=== PATIENT | female | born 2000 | race Two or more races ===

== ENCOUNTER 2024-11-19 01:53 | Emergency (ER) | payer BC, MEDICAID, SELFPAY ==
[2024-11-19 01:54] VITALS: BMI 29.0
--- NOTE | 2024-11-19 02:41 | PC.NURSE ---
pt informed me that she is leaving.
== END 2024-11-19 02:41 | disposition left against medical advice (07) ==
PROVIDERS: Emergency Provider Emergency Medicine
DX: Z53.21 Procedure and treatment not carried out due to patient leaving prior to being seen by health care provider (principal)

== ENCOUNTER 2025-04-05 17:44 | Emergency (ER) | payer BC, MEDICAID, SELFPAY ==
[2025-04-05 18:03] VITALS: BP 131/86; PULSE 109; RESP 17; TEMP 36.7; O2SAT 98; BMI 26.4
--- NOTE | 2025-04-05 18:43 | XR_ITS ---
Examination: Complete OB ultrasound, less than 14 weeks, transabdominal Date and time of exam: April 05, 2025 at 2004 hours INDICATIONS: Body aches pelvic pain 2 weeks Technique: Obstetrical ultrasound images less than 14 weeks performed via transabdominal imaging Findings: A normal shaped single intrauterine gestation is present in the uterus. CRL 4.95 cm corresponds to 11 weeks 5 days gestational age Cardiac motion 164 BPM 21 x 4 mm subchorionic hemorrhage Ultrasonographic survey of visible structures unremarkable. Amniotic fluid volume appears appropriate for this estimated gestational age. Right ovary 2.8 cm arterial flow 9 mm follicular cyst Left ovary obscured by bowel gas IMPRESSION: Viable intrauterine gestation 11 weeks 5 days Recommend short-term follow-up, given the subchorionic hemorrhage
--- NOTE | 2025-04-05 18:44 | EDRME_ITS ---
Rapid Medical Screening Exam [facility] Arrival date/time: 04/05/25 17:44 24F at approximately 12 weeks and with history of hypothyroidism presents to ED with 1 week of worsening low back pain, green vaginal discharge, N/V, and fevers/chills. Patient finished yeast infection treatment w/o relief. Patient denies ab/pelvic pain/cramping, dysuria, and vaginal bleeding. Chief Complaint: Nausea/Vomiting/Diarrhea Vital signs: Vital Signs Temperature 98.1 F 04/05/25 18:03 Pulse Rate 109 H 04/05/25 18:03 Respiratory Rate 17 04/05/25 18:03 Blood Pressure 131/86 H 04/05/25 18:03 Pulse Oximetry (%) 98 04/05/25 18:03 Oxygen Delivery Method Room Air 04/05/25 18:03
[2025-04-05 19:09] LABS: Lactate (Lactic Acid) 1.1 mMol/L (0.4-2.0)
[2025-04-05 19:10] LABS: Collection Type, Urine Clean Catch
[2025-04-05 19:11] LABS: Basophils # (Auto) 0.0 Thou/mm3 (0.0-0.2); Basophils % (Auto) 0 % (0-2.5); Eosinophils # (Auto) 0.1 Thou/mm3 (0.0-0.5); Eosinophils % (Auto) 1 % (0-10); Hematocrit 39.4 % (36.0-46.0); Hemoglobin 13.4 g/dL (12.0-16.0); Immature Granulocytes Auto 0.01 Thou/mm3 (0.00-0.00); Lymphocytes # (Auto) 1.0 Thou/mm3 (1.0-4.8); Lymphocytes % (Auto) 16 % (10-50); Mean Corpuscular HGB Conc 34.0 g/dl (31.0-37.0); Mean Corpuscular Hemoglobin 29.7 pg (25.0-35.0); Mean Corpuscular Volume 87 fL (80-100); Monocytes # (Auto) 0.3 Thou/mm3 (0.0-0.8); Monocytes % (Auto) 5 % (0-12); Neutrophils # (Auto) 5.2 Thou/mm3 (1.8-7.7); Neutrophils % (Auto) 78 % (37-80); Nucleated Red Blood Cell # 0.00 Thou/mm3 (0.00-0.00); Nucleated Red Blood Cell % 0 /100 WBC (0); Platelet Count 201 Thou/mm3 (140-440); RDW Standard Deviation 40.2 fL (36.4-46.3); Red Blood Count 4.51 Miln/mm3 (4.00-5.20); White Blood Count 6.7 Thou/mm3 (3.6-11.0)
[2025-04-05 19:16] LABS: Bacteria,Urine Rare; Bilirubin,Urine Negative (Negative); Blood,Urine Negative (Negative); Clarity,Urine Clear (Clear/Hazy); Color,Urine Colorless (Lt Yel-Yel); Glucose, Urine Negative (Negative); Ketones,Urine Negative (Negative); Leukocyte Esterase,Urine Negative (Negative); Nitrite,Urine Negative (Negative); PH,Urine 7.5 (5.0-7.0); Protein,Urine Negative (Neg - Trace); RBC,Urine 2 /hpf (0-3); Specific Gravity,Urine 1.008 (1.001-1.035); Squamous Epithelial Cell,Urine < 1 /hpf (0-5); Urobilinogen,Urine Negative mg/dL (0.0-1.0); WBC,Urine 1 /hpf (0-5)
[2025-04-05 19:38] LABS: Alanine Aminotransferase 14 U/L (10-49); Albumin, Serum 4.4 gm/dL (3.5-5.0); Albumin/Globulin Ratio 1.6 (1.2-2.2); Alkaline Phosphatase 68 U/L (46-116); Anion Gap 8 (7-16); Aspartate Amino Transferase 13 U/L (0-34); BUN/Creatinine Ratio 8 Ratio (12-20); Bilirubin,Total 0.5 mg/dL (0.3-1.2); Blood Urea Nitrogen < 5 mg/dL (9-23); Calcium 9.4 mg/dL (8.3-10.6); Calcium (Corrected) 9.4 mg/dL (8.5-10.1); Carbon Dioxide 25.1 mMol/L (20.0-31.0); Chloride 105 mMol/L (98-107); Creatinine (Component) 0.6 mg/dL (0.6-1.3); Estimated Creatinine Clearance 152.8 mL/min (>60); Globulin 2.7 gm/dL (2.3-3.5); Glucose 90 mg/dL (74-106); Osmolality,Calculated 272 (275-295); Potassium 3.5 mMol/L (3.4-5.1); Sodium 138 mMol/L (136-145); Total Protein 7.1 gm/dL (5.7-8.2); eGFR > 60 See Note
[2025-04-05 19:42] LABS: Procalcitonin 0.08 ng/ml (0.0-0.49)
--- NOTE | 2025-04-05 21:27 | PD.EDNV ---
Nausea/Vomit./Diarrhea-RME/HPI General Chief complaint: Nausea/Vomiting/Diarrhea Stated complaint: 11 weeks OB,, vaginal discharge, vomiting Time Seen by Provider: 04/05/25 19:39 Arrival date/time: 04/05/25 17:44 RME / HPI RME / HPI Narrative: 24F at approximately 12 weeks and with history of hypothyroidism presents to ED with 1 week of worsening low back pain, yellowish vaginal discharge, N/V, and fevers/chills. Patient finished yeast infection treatment w/o relief. Patient denies ab/pelvic pain/cramping, dysuria, and vaginal bleeding. Patient also complained of nausea this been ongoing since start of . No vomiting noted. Related Data Home Medications ?Medication ?Instructions ?Recorded ?Confirmed labetalol 100 mg tablet 100 mg PO BID 04/02/24 04/02/24 levothyroxine 25 mcg tablet 25 mcg PO QDAY 04/02/24 04/02/24 vit no.95-ferrous 1 tab PO QDAY 04/02/24 04/02/24 fumarate 28 mg-folic acid 800 mcg tablet () Previous Rx's ?Medication ?Instructions ?Recorded docusate sodium 100 mg capsule 100 mg PO BID #60 caps 04/02/24 (Colace) ibuprofen 800 mg tablet 800 mg PO Q6H PRN pain #120 tabs 04/02/24 lanolin 50 % topical ointment 1 applic topical TID PRN skin 04/02/24 irritation #15 tubes doxylamine 10 mg-pyridoxine (vit 1 tab PO BID PRN nausea and 04/05/25 B6) 10 mg tablet,delayed release vomiting #30 tabs (Diclegis) Allergies Allergy/AdvReac Type Severity Reaction Status Date / Time latex Allergy Mild Rash Verified 04/05/25 17:49 Review of Systems Review of Systems Narrative Review of Systems: Review of system reviewed and within normal limits except mentioned in HPI ED Exam Narrative Physical exam: VITAL SIGNS: Reviewed. GENERAL APPEARANCE: Alert and interactive, follows commands, no acute distress, HEAD AND FACE: Non-traumatic. ENT: PERRL, pink conjunctivitis, eyelid no trauma, Mucous membrane moist. NECK: Supple, nontender, no nuchal rigidity. CHEST: No tenderness, no crepitus, no paradoxical movement, no retractions. LUNGS: Clear, well ventilated, symmetric, no rales, no wheezing, no ronchi, no stridor, good breath sounds bilaterally. HEART: Regular rate, regular rhythm, no murmur, no gallops. ABDOMEN: Soft, positive bowel sounds, nondistended, no guarding, nontender, no rebound, no masses, RECTAL: Deferred. GENITAL: Deferred. NEUROLOGICAL: Gross motor function intact sensory function intact, Appropriate for age. MUSCULOSKELETAL: low back nontender, full range of motion. EXTREMITIES: Nontender, full range of motion. SKIN: Color pink, dry, no rash, no lacerations, no abrasions, no contusions. LYMPHATICS: Deferred. Course Quality Measures none Orders Category Date Time Status US OB <= 14 weeks fetus Stat Exams 04/05/25 18:43 Completed CBC Stat Lab 04/05/25 18:54 Completed CMP [Comprehensive Metabolic Panel] Stat Lab 04/05/25 18:54 Completed Lactate (Lactic Acid) Stat Lab 04/05/25 18:54 Completed Procalcitonin Stat Lab 04/05/25 18:54 Completed UA [Urinalysis] Stat Lab 04/05/25 19:02 Completed Urine Culture Stat Lab 04/05/25 19:02 Received Wet Prep Stat Lab 04/05/25 20:22 Received Vital Signs Vital signs: Vital Signs Temperature 98.1 F 04/05/25 18:03 Pulse Rate 109 H 04/05/25 18:03 Respiratory Rate 17 04/05/25 18:03 Blood Pressure 131/86 H 04/05/25 18:03 Pulse Oximetry (%) 98 04/05/25 18:03 Oxygen Delivery Method Room Air 04/05/25 18:03 Nausea/Vomiting/Diarrhea MDM Narrative MDM Narrative:: 24F at approximately 12 weeks and with history of hypothyroidism presents to ED with 1 week of worsening low back pain, yellowish vaginal discharge, N/V, and fevers/chills. Patient finished yeast infection treatment w/o relief. Patient denies ab/pelvic pain/cramping, dysuria, and vaginal bleeding. Patient also complained of nausea this been ongoing since start of . No vomiting noted. Patient's workup today all came back normal including urinalysis which is very clean with no sign of infection. I ordered for wet mount the laboratory personnel told me that they are not running the week Montanide will be run tomorrow morning. I told the patient to follow-up closely with [facility] regarding with mild results in 1 to 2 days. Currently I am not treating her abnormal vaginal discharge which could be normal occurrence with . She was already seen and treated by [facility] however is not working. Patient was sent home on Diclegis for nausea. Patient's ultrasound of the showed single live intrauterine gestation about 11 weeks. No abnormality noted. I will send her home on Diclegis. Patient data External records reviewed:: None Clinical information provided by:: patient Social determinants that could affect healthcare access:: none Patient has the following chronic illnesses:: None How is presenting disease/condition affected by chronic disease/condition?: no chronic disease Evaluation data The following diagnostics were reviewed and interpreted by me:: lab results and radiology exam(s) Lab and/or radiology exams considered but not ordered:: None Interpretation Summary: See results MDM Medications / Prescriptions Medications / Prescriptions considered but not ordered:: None Medication administrations:: None Consultations Consultation(s) initiated? (list below): No Diagnosis Nausea Differential Diagnosis: dehydration and other (Nausea related to , vaginal discharge, 11 weeks) Most likely diagnosis given after review of the tests above:: Nausea, vaginal discharge, 11 weeks Admission Indicated Admission indicated?: not indicated Admission Request Was there a request for admission?: No Disposition Plan Disposition Plan: Discharge Discharge Attestation Discharge Attestation: The patient was given an opportunity to ask questions and understood the discharge instructions. Discharge instructions specifically effects, indications for sooner follow up or return to the emergency department, and the expected course of current diagnosis. Patient condition: Stable Discharge Plan Plan Patient Disposition: HOME (Self Care) Discharge Disposition comment: stable Prescriptions/Referrals Prescriptions/Med Rec: New doxylamine-pyridoxine (vit B6) [Diclegis] 10-10 mg tablet,delayed release (DR/EC) 1 tab PO BID PRN (Reason: nausea and vomiting) Qty: 30 0RF No Action labetalol 100 mg tablet 100 mg PO BID Patient Comments: TAKE 1 TABLET BY MOUTH TWICE A DAY PNV no.95-ferrous fumarate-FA [] 28 mg iron- 800 mcg tablet 1 tab PO QDAY Patient Comments: TAKE 1 TABLET BY MOUTH EVERY DAY FOR 90 DAYS levothyroxine 25 mcg tablet 25 mcg PO QDAY Patient Comments: TAKE 1 TABLET BY MOUTH EVERY DAY ibuprofen 800 mg tablet 800 mg PO Q6H MDD 4 PRN (Reason: pain) Qty: 120 0RF docusate sodium [Colace] 100 mg capsule 100 mg PO BID Qty: 60 0RF lanolin 50 % ointment 1 applic topical TID PRN (Reason: skin irritation) Qty: 15 0RF Referrals: No Primary/Family,Physician [Primary Care Provider] - In 1 week Problem List Clinical Impression: Nausea and vomiting during prior to 22 weeks gestation, Vaginal discharge during Patient/Caregiver Discharge Instructions Discharge Activity: activity as tolerated Education Materials: ED Vomiting (Adult) Additional Instructions: Thank you for the opportunity for serving you today. You are stable for discharged . You are advised to: Follow-up with your PCP in 1 to 2 days Return to ED for worsening of symptoms Increase oral fluids Take medication as prescribed Print Language: Georgian Stand Alone Forms: Lesly Award Info., Patient Portal Info Letter PA/VALERIE Supervising Physician ADELITA/VALERIE Supervising Physician: MD Ashwin
== END 2025-04-05 21:33 | disposition home or self-care (01) ==
PROVIDERS: Physician Assistant; Emergency Provider Emergency Medicine
DX: O21.9 Vomiting of pregnancy, unspecified (principal); Z3A.11 11 weeks gestation of pregnancy
CPT/HCPCS: 36415; 76801; 80053; 81001; 83605; 84145; 85025; 87086; 87210; 99283

== ENCOUNTER 2025-04-26 19:08 | Emergency (ER) | payer BC, MEDICAID, SELFPAY ==
[2025-04-26 19:10] VITALS: BMI 26.6
[2025-04-26 19:22] VITALS: BP 123/81; PULSE 99; RESP 18; TEMP 37.3; O2SAT 97
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
[2025-04-26] MEDS: ACETAMINOPHEN 500 MG TABLET 1000 MG PO (20:15)
== END 2025-04-26 21:52 | disposition home or self-care (01) ==
PROVIDERS: Emergency Provider Emergency Medicine
DX: O9A.212 Injury, poisoning and certain other consequences of external causes complicating pregnancy, second trimester (principal); S19.9XXA Unspecified injury of neck, initial encounter; S39.92XA Unspecified injury of lower back, initial encounter; Z3A.14 14 weeks gestation of pregnancy; V49.40XA Driver injured in collision with unspecified motor vehicles in traffic accident, initial encounter; Y92.410 Unspecified street and highway as the place of occurrence of the external cause; O32.2XX0 Maternal care for transverse and oblique lie, not applicable or unspecified
CPT/HCPCS: 76805; 99283; A9270